=== PATIENT | male | born 1940 | race Caucasian/White ===

== ENCOUNTER → 2017-04-11 | Outpatient (CLI) | payer OTHER, BC ==
[~2017-04-11] MED LIST: ASPEC325 PO; DVN80 PO; HYDR-5688 PO; OXYSR10 PO; SNK PO
--- NOTE | 2017-04-11 12:35 | DIAGNOSTIC IMAGING REPORT ---
3 phase bone scan BONE SCAN 3 PHASE LIMITED CLINICAL HISTORY: LOOSE TKA /INFECTION pain TECHNIQUE: Multiphase bone scan of the lower extremities following administration of 25.8 mCi technetium 99m MDP. COMPARISON STUDY: None FINDINGS: Vascular flow images show symmetry of flow. No areas of hyperemia are present. Blood pool images are unremarkable activity considered symmetric over the knees. Static delayed images demonstrate a mild increase in activity of the left knee presumably on a degenerative basis. No evidence for increased activity of significance involving the patient's right knee prosthetic or surrounding bone. IMPRESSION: Negative study. Activity characteristics of the right knee are unremarkable. Mild degenerative activity left knee. Electronically signed by: Geovanny Hart M.D. 04/11/2017 12:33 PM Dictated Date/Time: 04/11/2017 12:31 PM
== END | disposition home or self-care (01) ==
LOC: C.NUCL 08:32
PROVIDERS: ATTEND Orthopaedic Surgery
DX: M25.561 Pain in right knee (principal)